=== PATIENT | female | born 1990 | race Caucasian/White ===

== ENCOUNTER 2017-02-24 10:35 | Emergency (ER) | payer SELFPAY ==
[~2017-02-24] VITALS: Ht 157.5 cm; Wt 68.0 kg
[~2017-02-24 10:35] MED LIST: CIPR500T4 PO; MACR100C2 PO; NAPR500 PO; TRAM50 PO
[2017-02-24 10:37] VITALS: BP 126/76; PULSE 90; RESP 13; TEMP 98.4; O2SAT 98
[2017-02-24] MEDS ORDERED: BACT800T5 PO (11:01)
--- NOTE | 2017-02-24 11:03 | PD ---
HPI Chief Complaint: Medication Refill Request Time Seen by Provider: 11:01 Travel History International Travel<30 days: No Contact w/Intl Traveler<30days: No Traveled to known affect area: No History of Present Illness HPI 26 old female presents to the emergency department requesting a prescription for Bactrim for her urinary tract and that she was diagnosed with yesterday. She was prescribed Macrobid and says she can't afford the prescription. Is still complaining of lower abdominal cramping and bloating. She denies dysuria. Denies vaginal discharge. Thought maybe she was constipated and took [id number] medications without relief after bowel movement. Denies fever , vomiting. Says she'll try the Bactrim and if her symptoms do not subside then she'll return for reevaluation. Has no other medical complaints. Allergies to amoxicillin, penicillins. Symptoms are mild in severity. No other modifying factors or associated signs and symptoms. PFSH Past Medical History Diminished Hearing: No ?: Not : 3 Para: 3 Miscarriage: 0 : 0 Past Surgical History Cholecystectomy: Yes (03/01/13) Social History Alcohol Use: No Tobacco Use: Yes (04/29) Substance Use: No Allergies-Medications (Allergen,Severity, Reaction): Coded Allergies: amoxicillin (Unverified Allergy, Severe, Hives, 02/24/17) penicillin G (Unverified Allergy, Severe, 02/24/17) Reported Meds & Prescriptions Reported Meds & Active Scripts Active Bactrim DS (Sulfamethoxazole-Trimethoprim) 800-160 Mg Tab 1 Tab PO BID 7 Days Ultram (Tramadol HCl) 50 Mg Tab 50 Mg PO Q4H PRN Macrobid (Nitrofurantoin Monoh/Nitrofur Macro) 100 Mg Cap 100 Mg PO BID Naprosyn (Naproxen) 500 Mg Tab 500 Mg PO BID PRN Take with food Cipro (Ciprofloxacin HCl) 500 Mg Tab 500 Mg PO BID 10 Days Review of Systems Except as stated in HPI: all other systems reviewed are Neg Physical Exam Narrative GENERAL: Well-nourished, well-developed female patient, in no acute distress SKIN: Warm and dry. HEAD: Atraumatic. Normocephalic. EYES: Pupils equal and round. No scleral icterus. No injection or drainage. ENT: Mucosa pink and moist. Airway patent. NECK: Trachea midline. CARDIOVASCULAR: Regular rate. RESPIRATORY: No accessory muscle use. GASTROINTESTINAL: Rounded. MUSCULOSKELETAL: No obvious deformities. No clubbing. No cyanosis. No edema. NEUROLOGICAL: Awake and alert. Oriented 3. No obvious cranial nerve deficits. Motor grossly within normal limits. Normal speech. PSYCHIATRIC: Appropriate mood and affect; insight and judgment normal. Data Data Last Documented VS Vital Signs Date Time Temp Pulse Resp B/P (MAP) Pulse Ox O2 Delivery O2 Flow Rate FiO2 02/24/17 10:37 98.4 90 13 126/76 (93) 98 Orders Orders Ed Discharge Order (02/24/17 11:03) MDM Medical Decision Making Medical Screen Exam Complete: Yes Emergency Medical Condition: Yes Medical Record Reviewed: Yes Differential Diagnosis Medication refill, medical clearance, cystitis Narrative Course 26-year-old female diagnosed with ascending cystitis yesterday and was given a prescription for Macrobid. She says she can't afford to fill the prescription and is requesting Bactrim. Bactrim prescribed for home. Instructed patient to follow up with primary care provider. Patient verbalizes understanding and agreement with treatment plan. Patient is medically cleared and stable for discharge. Discussed reasons to return to the emergency department. Patient agrees with treatment plan. The patients vital signs are stable and the patient is stable for outpatient follow-up and treatment. Patient discharged home, stable and in no acute distress. Diagnosis Primary Impression: Encounter for medication refill Referrals: [facility] Primary Care Physician Patient Instructions: General Instructions, Medication Refill, ED Additional Instructions: Take antibiotics as prescribed and complete full course Drink plenty of fluids Maintain good personal hygiene Follow-up with primary care provider Return to the emergency department immediately with worsening of symptoms Med/Other Pt SpecificInfo: Prescription(s) given Scripts Sulfamethoxazole-Trimethoprim (Bactrim DS) 800-160 Mg Tab 1 TAB PO BID for Infection for 7 Days, #14 TAB 0 Refills Prov: Goldie Estrella 02/24/17 Disposition: 01 DISCHARGE HOME Condition: Stable Goldie Estrella Feb 24, 2017 11:02
== END 2017-02-24 11:36 | disposition home or self-care (01) ==
LOC: NEPK 10:35
DX: Z76.0 Encounter for issue of repeat prescription (principal); R03.0 Elevated blood-pressure reading, without diagnosis of hypertension; R14.0 Abdominal distension (gaseous); F17.200 Nicotine dependence, unspecified, uncomplicated; Z88.0 Allergy status to penicillin
CPT/HCPCS: 99281